=== PATIENT | male | born 1940 | race Caucasian/White ===

== ENCOUNTER → 2018-01-29 08:03 | Outpatient (CLI) | payer OTHER, SELFPAY ==
[2018-01-29 09:45] LABS: AST(SGOT) 18 U/L (15-37); Alanine Aminotransfer ALT/SGPT 23 U/L (16-61); Albumin, Serum 3.8 g/dL (3.2-5.0); Alkaline Phosphatase 102 U/L (45-117); Bilirubin, Direct 0.17 mg/dL (0.00-0.30); Cholesterol 98 mg/dL (200); Globulin 3.8 g/dL (2.2-4.2); High Density Lipoprotein 57 mg/dL; Protein, Total 7.6 g/dL (6.4-8.2); Triglycerides 83 mg/dL; Very Low Density Lipoprotein 17 mg/dL (5-40)
== END ==
PROVIDERS: Visit Provider Internal Medicine Cardiovascular Disease
DX: E78.00 Pure hypercholesterolemia, unspecified (principal)
CPT/HCPCS: 36415; 80061; 80076

== ENCOUNTER → 2018-08-06 07:53 | Outpatient (CLI) | payer OTHER, SELFPAY ==
[2018-08-06 09:50] LABS: AST(SGOT) 13 U/L (15-37); Alanine Aminotransfer ALT/SGPT 19 U/L (16-61); Albumin, Serum 3.7 g/dL (3.2-5.0); Alkaline Phosphatase 76 U/L (45-117); Cholesterol 90 mg/dL (200); Globulin 3.1 g/dL (2.2-4.2); High Density Lipoprotein 46 mg/dL; Protein, Total 6.8 g/dL (6.4-8.2); Triglycerides 70 mg/dL; Very Low Density Lipoprotein 14 mg/dL (5-40)
== END ==
PROVIDERS: Family Provider Internal Medicine; PCP Internal Medicine; Visit Provider Internal Medicine Cardiovascular Disease
DX: Z79.899 Other long term (current) drug therapy (principal); I42.9 Cardiomyopathy, unspecified; I48.1 Persistent atrial fibrillation; I25.2 Old myocardial infarction
CPT/HCPCS: 36415; 80061; 80076

== ENCOUNTER → 2021-02-06 10:30 | Outpatient (CLI) | payer OTHER, SELFPAY ==
[2021-02-06 09:23] VITALS: BMI 23.6
[2021-02-06 12:45] LABS: Anion Gap 5 (5-15); BUN 30 mg/dL (7-18); BUN/Creat Ratio 11.8 RATIO (10-20); Chloride 106 mmol/L (98-107); Creatinine, Serum 2.55 mg/dL (0.70-1.30); EST Glomerular Filtration Rate 26 mL/min (>60); Est Glom Filt Rate - Afr Amer 31 mL/min (>60); Glucose 85 mg/dL (74-106); Potassium 4.3 mmol/L (3.5-5.1); Sodium Level 140 mmol/L (136-145)
== END ==
PROVIDERS: Visit Provider Internal Medicine Cardiovascular Disease
DX: I48.11 Longstanding persistent atrial fibrillation (principal); I42.8 Other cardiomyopathies
CPT/HCPCS: 36415; 80048

== ENCOUNTER → 2024-02-07 | Outpatient (CLI) | payer SELFPAY ==
--- NOTE | 2024-02-07 13:56 | ECHOD_ITS ---
Reason For Study: AFIB Procedure This was a 2D Doppler, Color Flow transthoracic echocardiogram. Exam performed in department. Left Ventricle Normal LV size. Left ventricular systolic function is normal. The estimated ejection fraction is 60 %. No regional wall motion abnormalities noted. Right Ventricle Normal RV size. Normal systolic function. Atria The left atrium is moderately enlarged. Normal right atrium. Mitral Valve Normal mitral valve. Tricuspid Valve Normal tricuspid valve. Mild (1+) tricuspid valve insufficiency. Pulmonary artery systolic pressure is 34 mmHg. Aortic Valve Trisinus/trileaflet aortic valve. Mild (1+) aortic valve insufficiency. Pulmonic Valve Normal pulmonic valve. Great Vessels Normal aortic root. The pulmonary artery is normal size. Normal inferior vena cava. Pericardium/Pleural No pericardial effusion. MMode/2D Measurements & Calculations LVIDd: 3.4 cm IVSd: 1.1 cm Ao root diam: 3.7 cm LVIDs: 2.5 cm LVPWd: 1.1 cm RVDd: 4.2 cm FS: 24.2 % LAV(MOD-bp): 113.4 ml LVAd ap4: 29.1 cm2 SV(MOD-sp4): 47.1 ml LAV(MOD-bp) Indexed: 65.1 ml/m2 LVLd ap4: 8.9 cm LAV(MOD-sp2): 135.8 ml EDV(MOD-sp4): 80.8 ml LAV(MOD-sp4): 91.6 ml EDV(sp4-el): 80.7 ml LVAs ap4: 17.2 cm2 LVLs ap4: 7.5 cm ESV(MOD-sp4): 33.6 ml ESV(sp4-el): 33.4 ml EF(MOD-sp4): 58.3 % EF(sp4-el): 58.7 % SV(sp4-el): 47.3 ml LA A4 area: 29.6 cm2 LA dimension(2D): 3.5 cm RA A4 area: 20.1 cm2 TAPSE: 1.3 cm Doppler Measurements & Calculations MV E max piedad: 95.9 cm/sec Ao V2 max: 122.4 cm/sec AI max piedad: 401.4 cm/sec Ao max P.0 mmHg AI max P.5 mmHg Ao V2 mean: 80.7 cm/sec Ao mean P.1 mmHg AI dec slope: 271.0 cm/sec2 Ao V2 VTI: 23.3 cm AI P1/2t: 433.9 msec AV (velocity ratio): 0.85 LV V1 max: 103.7 cm/sec PA V2 max: 91.0 cm/sec TR max piedad: 275.4 cm/sec LV V1 max P.3 mmHg PA V2 mean: 62.6 cm/sec TR max P.3 mmHg LV V1 mean P.6 mmHg LV V1 mean: 75.3 cm/sec LV V1 VTI: 19.9 cm ECHO/Echo Complete Interpretation Summary Normal LV size. Left ventricular systolic function is normal. The estimated ejection fraction is 60 %. The left atrium is moderately enlarged. Mild (1+) aortic valve insufficiency. Mild (1+) tricuspid valve insufficiency. Ordering Physician: Rodrigue Owens Referring Physician: Rodrigue Owens Performed By: Paz Velarde RCS
--- OUTSIDE RECORDS SUMMARY | 2024-02-07 19:40 | XMS RPT_ITS | CCD ---
Author Name Unknown Address [address] [place] [address] Organization [facility] Care Team Providers Care Licensed Staff Mft Name Role Phone RON ARMSTRONG MD Admitting Unavailable RON ARMSTRONG MD Attending Unavailable RON ARMSTRONG MD Primary Care Unavailable RON ARMSTRONG MD Consulting Unavailable PROVIDER, UNKNOWN Consulting Unavailable PROVIDER, UNKNOWN Consulting Unavailable PROVIDER, UNKNOWN Consulting Unavailable RON ARMSTRONG MD Admitting Unavailable RON ARMSTRONG MD Attending Unavailable RON ARMSTRONG MD Primary Care Unavailable RON ARMSTRONG MD Consulting Unavailable PROVIDER, UNKNOWN Consulting Unavailable PROVIDER, UNKNOWN Consulting Unavailable PROVIDER, UNKNOWN Consulting Unavailable RON ARMSTRONG MD Admitting Unavailable RON ARMSTRONG MD Attending Unavailable RON ARMSTRONG MD Primary Care Unavailable RON ARMSTRONG MD Consulting Unavailable PROVIDER, UNKNOWN Consulting Unavailable PROVIDER, UNKNOWN Consulting Unavailable PROVIDER, UNKNOWN Consulting Unavailable RON ARMSTRONG MD Admitting Unavailable RON ARMSTRONG MD Attending Unavailable RON ARMSTRONG MD Primary Care Unavailable RON ARMSTRONG MD Consulting Unavailable PROVIDER, UNKNOWN Consulting Unavailable PROVIDER, UNKNOWN Consulting Unavailable PROVIDER, UNKNOWN Consulting Unavailable RON ARMSTRONG MD Admitting Unavailable RON ARMSTRONG MD Attending Unavailable RON ARMSTRONG MD Primary Care Unavailable RON ARMSTRONG MD Consulting Unavailable PROVIDER, UNKNOWN Consulting Unavailable PROVIDER, UNKNOWN Consulting Unavailable PROVIDER, UNKNOWN Consulting Unavailable Problems Problem Classification Problem Date Documented Da te Episodic/Chronic Acute cerebrovascular disease (1 source) Cerebral infarction due to embolism of left middle cerebral artery; Translations: [Cerebral infarction due to embolism of left middle cerebral artery] Onset: 07-17-2019 Chronic Chronic kidney disease (3 sources) Chronic kidney disease, stage 3 (moderate); Translations: [Chronic kidney disease, stage 3 (moderate)] Onset: 08-02-2019 Chronic Disorders of lipid metabolism (1 source) Hyperlipidemia, unspecified; Translations: [Hyperlipidemia, unspecified] Onset: 08-10-2019 Chronic Nephritis; nephrosis; 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); Translations: [Atrophy of kidney (terminal)] Onset: 08-02-2019 Chronic Results Test Name Value Interpretation Reference Range Facil ity Encounters Encounter Date Encounter Type Care Provider Facility Start: 09-23-2019 End: 09-23-2019 Patient encounter procedure RON MCCLOUD PATTI [facility] Start: 08-10-2019 Patient encounter procedure RON MCCLOUD PATTI [facility] Start: 08-02-2019 End: 08-02-2019 Patient encounter procedure RON MCCLOUD PATTI [facility] Start: 07-17-2019 End: 07-17-2019 Patient encounter procedure RON MCCLOUD [facility] Procedures Date Procedure Procedure Detail Performing Clinician Start: 07-17-2019 [object Object] RON SOMMER Payers Date Payer Category Payer Unknown [id number] Unknown Summary Purpose Family History No Family History Records FoundNo Family History Records Found Advance Directives No Advanced Directives Records FoundNo Advanced Directives Records Found Additional Source Comments (unrecognized sect ion and content) No Status Records FoundNo Status Records Found INFORMATION SOURCE (unrecogn ized section and content) DATE CREATED AUTHOR AUTHOR'S ORGANIZ ATION 09/23/[address] [facility] FOR RECORDS PERTAINING TO PATIENTS WHO ARE OR HAVE BEEN ENROLLED IN A CHEMICAL DEPENDENCY/SUBSTANCEABUSE PROGRAM, SOME INFORMATION MAY BE OMITTED. This clinical summary was aggregated from multiple sources. Caution should be exercised in using it in the provision of clinical care. This summary normalizes information from multiple sources, and as a consequence, information in this document may materially change the coding, format and clinical context of patient data. In addition, data may be omitted in some cases. CLINICAL DECISIONS SHOULD BE BASED ON THE PRIMARY CLINICAL RECORDS. [employer] provides no warranty or guarantee of the accuracy or completeness of information in this document.
== END | disposition home or self-care (01) ==
PROVIDERS: PCP Family Medicine; Referring Provider Internal Medicine Cardiovascular Disease; Visit Provider Internal Medicine Cardiovascular Disease
DX: I48.11 Longstanding persistent atrial fibrillation (principal); I42.8 Other cardiomyopathies
CPT/HCPCS: 93306